=== PATIENT | female | born 1960 | race Caucasian/White ===

== ENCOUNTER 2017-06-22 15:28 | Emergency (ER) | payer BC ==
[~2017-06-22 15:28] MED LIST: ALPR0.5T3 PO; APIX2.5T PO; HYDR-3288 PO; LEVO150T7 PO; LIOT25TA3 PO; VITA10007 PO; VITA200012 PO
[2017-06-22 15:33] VITALS: BP 143/98; PULSE 81; RESP 18; TEMP 98; O2SAT 99
--- NOTE | 2017-06-22 16:46 | RADRPT ---
EXAM DATE/TIME: 06/22/2017 16:11 [facility] COMPARISON: No previous studies available for comparison. INDICATIONS : Left knee pain amd swelling. No prior trauma. MEDICAL HISTORY : Arthritis. SURGICAL HISTORY : None. ENCOUNTER: Initial ACUITY: 1 day PAIN SCORE: 10/10 LOCATION: Left knee. FINDINGS: Joint space narrowing and osteophyte formation most prominently involving the lateral and patellofemo ral compartments. Osseous structures are intact. There is likely a very small suprapatellar effusion. CONCLUSION: 1. Degenerative osteoarthritis most prominently involving the lateral and patellofemoral compartments . 2. Probable very small suprapatellar effusion. Miguel Angel Bush MD on June 22, 2017 at 16:43 Board Certified Radiologist. This report was verified electronically.
[2017-06-22] MEDS ORDERED: ACETAMINOPHEN/HYDROcodone 325 MG/5 MG TAB PO ONE (19:00)
[2017-06-22] MEDS ORDERED: KETOROLAC TROMETHAMINE 60 MG/2 ML (IM) VIAL IM ONE (19:00)
[2017-06-22] MEDS ORDERED: NORC5TAB PO (19:02)
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
[2017-07-02] MEDS ORDERED: ASCO500T PO (09:09)
[2017-07-02] MEDS ORDERED: CHOL1TAB42 PO (09:09)
[2017-07-02] MEDS ORDERED: LEVO137T2 PO (09:09)
== END 2017-06-22 19:21 | disposition home or self-care (01) ==
LOC: NEPD 15:28
DX: M25.562 Pain in left knee (principal); M19.90 Unspecified osteoarthritis, unspecified site; Z96.641 Presence of right artificial hip joint
CPT/HCPCS: 73564; 96372; 99284; J1885

== ENCOUNTER → 2017-07-02 | Outpatient (CLI) | payer BC ==
[~2017-07-02] MED LIST changes: +ASCO500T PO; +ASPI81CH6 CHEW; +CHOL1TAB42 PO; +CPMMACHINE; +ENOX40P SQ; +LEVO137T2 PO; +NORC5TAB PO
--- NOTE | 2017-07-02 18:19 | EKG ---
Date Performed: 07/02/2017 Time Performed: 08:50:52 PTAGE: 57 years EKG: Sinus rhythm NORMAL ECG Since PREVIOUS TRACING , no significant change noted PREVIOUS TRACIN08/03/2013 08.34 DOCTOR: Jeovanny Forrest Interpretating Date/Time 07/02/2017 18:18:07
== END ==
LOC: CPRE 08:39
PROVIDERS: ATTEND Orthopaedic Surgery Sports Medicine
DX: Z01.810 Encounter for preprocedural cardiovascular examination (principal)
CPT/HCPCS: 93005

== ENCOUNTER 2017-07-19 05:17 | Inpatient (IN) | payer BC ==
[~2017-07-19] VITALS: Ht 167.6 cm; Wt 104.5 kg
[~2017-07-19 05:17] MED LIST changes: -APIX2.5T PO; -ASPI81CH6 CHEW; -CPMMACHINE; -ENOX40P SQ; -LEVO150T7 PO; -NORC5TAB PO; -VITA10007 PO; -VITA200012 PO
[2017-07-19] MEDS ORDERED: POVIDONE IODINE 5% (ANTISEPSIS KIT) 4 APPLICATIONS EACH NARE PRN (06:30)
[2017-07-19] MEDS ORDERED: METOPROLOL TARTRATE 25 MG TAB PO PRN (06:30)
[2017-07-19] MEDS ORDERED: POVIDONE IODINE 7.5% SCRUB 118 ML BOTTLE TOPICAL SCH (06:30)
[2017-07-19] MEDS ORDERED: SODIUM CHLORID 0.9% 500 ML IV PRN (06:30)
[2017-07-19] MEDS ORDERED: CHLORHEXIDINE GLUCONATE 2 % 1 PACK (2 CLOTHS) TOPICAL PRN (06:30)
[2017-07-19] MEDS ORDERED: LACTATED RINGER'S 1000 ML IV PRN (06:30)
[2017-07-19] MEDS ORDERED: CHLORHEXIDINE GLUCONATE 4% SOLN 120 ML BTL TOPICAL SCH (06:30)
[2017-07-19] MEDS ORDERED: GENTAMICIN SULFATE 80 MG/2 ML VIAL ONE (06:58)
[2017-07-19] MEDS ORDERED: HYDR-3288 PO (06:59)
[2017-07-19] MEDS ORDERED: Post-op Orders (for Pharmacy) MISC XX ONE (07:00)
[2017-07-19] MEDS ORDERED: ALPRAZolam 0.5 MG TAB PO PRN (07:00)
[2017-07-19] MEDS ORDERED: diphenhydrAMINE HCL 50 MG/ML VIAL IV PUSH PRN (07:00)
[2017-07-19] MEDS ORDERED: MORPHINE SULFATE 4 MG/ML INJ IV PUSH PRN (07:00)
[2017-07-19] MEDS ORDERED: ASPI81CH6 CHEW (07:00)
[2017-07-19] MEDS ORDERED: ENOX40P SQ (07:00)
[2017-07-19] MEDS ORDERED: ACETAMINOPHEN/HYDROcodone 325 MG/7.5 MG TAB PO PRN (07:00)
[2017-07-19] MEDS ORDERED: BISACODYL 10 MG SUPP RECTAL PRN (07:00)
[2017-07-19] MEDS ORDERED: BUPIVACAINE LIPOSOME PF 1.3% 20 ML VIAL ONE (07:39)
[2017-07-19] MEDS ORDERED: ACETAMINOPHEN 1000 MG/100 ML 0 ML IV ONE (07:40)
[2017-07-19] MEDS ORDERED: APREPITANT 40 MG CAP ONE (07:57)
[2017-07-19] MEDS ORDERED: VANCOMYCIN 1000 MG/NS 250 ML (for <70 kg) IV SCH ×2 (08:30)
[2017-07-19] MEDS ORDERED: ceFAZolin 2 GM PREMIX 50 ML IV SCH (08:30)
[2017-07-19] MEDS ORDERED: ROPIVACAINE PERI-ARTICULAR INJECTION. P-ARTICULR SCH ×5 (08:30)
[2017-07-19] MEDS ORDERED: SODIUM CHLORIDE 0.9% IV SCH (08:30)
[2017-07-19] MEDS ORDERED: DEXAMETHASONE SOD PHOS 20 MG/5 ML VIAL IV PUSH SCH (08:30)
[2017-07-19] MEDS ORDERED: TRANEXAMIC ACID IV SCH (08:30)
[2017-07-19] MEDS ORDERED: NON-FORMULARY DRUG (Levothyroxine 137 MCG) PO SCH (09:00)
[2017-07-19] MEDS ORDERED: MIDAZOLAM HCL 5 MG/5 ML VIAL ONE (09:50)
--- NOTE | 2017-07-19 11:07 | MP ---
cc: JOAN FERNANDEZ DATE OF SURGERY 07/19/2017 PREOPERATIVE DIAGNOSIS Left knee osteoarthritis. POSTOPERATIVE DIAGNOSES Left knee osteoarthritis. PROCEDURE Left total knee arthroplasty. SURGEON Dr. Joan Fernandez COUNT ROOM CLERK Segundo Kendall PA-C ANESTHESIA Spinal with a femoral nerve block. ESTIMATED BLOOD LOSS Less than 50 cc COMPLICATIONS None. IMPLANTS USED DePuy Attune size 6 posterior stabilizing femoral component, size 5 rotating platform tibial baseplate, size 7-mm polyethylene tibial insert, size 35 patella. JUSTIFICATION The patient is a 57-year-old female with a history of severe end-stage osteoarthritis involving the left knee. She has severe disabling pain with standing, walking ambulation, weightbearing activities and severe pain at rest. She has failed greater than 3 months of nonoperative conservative treatment to include medication therapy injections, ambulatory assistive aids, home exercise program, active modification and weight loss. X-rays of the left knee reveal severe end-stage osteoarthritis, [id number] joint space narrowing, subchondral sclerosis, subchondral cysts, osteophyte formation and subluxation. The patient was counseled as to risks, benefits and alternatives to a total knee arthroplasty. The risks which were discussed include but not limited to anesthesia, bleeding, infection, damage to nerves, blood vessels, pain, stiffness, failure of the components, blood clots, pulmonary embolism and even . The patient favored the benefits over the risks, her pain was severe and she did wish to proceed with surgery. PROCEDURE IN DETAIL Written consent was obtained. The patient was identified by name, taken to the operating room, placed supine. Spinal anesthesia was administered as well as an adductor canal femoral nerve block. The patient was administered 2 grams of IV Ancef and 1 gram of IV vancomycin. A well-padded tourniquet was placed on the left thigh, left lower extremity prepped and draped using isopropyl alcohol, Hibiclens solution and Chloraprep solution. After a time-out was formed an Esmarch bandage was used to exsanguinate the left lower extremity, the tourniquet inflated to 300 mmHg. A longitudinal incision was made over the anterior aspect of the left knee, the medial parapatellar arthrotomy was performed. The patella was everted. The patellar resection guide was used to resect 9 mm of patella. The size 35-mm guide was placed, three drill holes were placed and the 35-mm trial fit well. Attention was turned to the femur where an intramedullary guide neli was placed and the distal femoral guide set to remove 10 mm of distal femur, 5 degrees off the anatomic valgus axis alignment. An oscillating saw was used to perform a distal femoral cut. Attention was turned to the tibia where an extramedullary tibial guide was set to remove 6 mm off the lowest portion of the medial tibial plateau. The tibial guide was set in place and tibia cut was performed. A 5-mm spacer block showed full extension. Attention was turned back to the femur where AP sizing block measured a size 6. The anterior reference 3-degree external rotation guide was used to pin a size [address] The anterior, posterior and chamfer cuts were performed. A size 6 PCL box was pinned in place and PCL boxed off with an oscillating saw. The medial and lateral meniscus remnants were removed as well as bone and soft tissue debris at the posterior portion of the knee. A size 5 tibia baseplate was pinned in place and tibia was drilled and punched. Trial components were evaluated and final components cemented in place. With the current components the leg could achieve full extension to 0 degrees and flexion to 140 with no evidence of tibial lift-off. Varus-valgus balance appeared appropriate and symmetric and the patella was noted to track centrally. The knee was again thoroughly irrigated with sterile saline pulse lavage antibiotic impregnated solution. The arthrotomy incision was closed with #1 Vicryl suture, the subcutaneous layer with 2-0 Vicryl suture. The skin was closed with Dermabond. Sterile dressing applied. The patient tolerated the procedure well; no intraoperative complications noted. Segundo Kendall, physician fundraising assistant certified, was present for the entire procedure to include patient positioning and the procedure itself. The medical necessity of a physician fundraising assistant was indicated in this case due to the complexity of the procedure. He assisted with manipulation of the leg and also with traction of muscle, tendon, bone and neurovascular structures. He assisted with preparation of bone and also implantation of the prosthetic replacements. Joan Fernandez MD JWM/SSB /10:37 AM /10:48 AM
[2017-07-19] MEDS ORDERED: DO NOT ADM ANY ANTICOAGULANT DRUGS PRN (11:09)
[2017-07-19] MEDS ORDERED: TRANEXAMIC PERI-ARTICULAR 3,000 MG/NS 100 ML P-ARTICULR SCH ×2 (11:30)
[2017-07-19] MEDS: SODIUM CHLOR 0.9% 1000 ML INJ 1,000 ML IV SCH ×2 (11:40→23:39)
[2017-07-19] MEDS: LEVOTHYROXINE SODIUM 25 MCG TAB PO SCH (12:00)
[2017-07-19] MEDS: LEVOTHYROXINE SODIUM 112 MCG TAB PO SCH (12:00)
[2017-07-19] MEDS: ASCORBIC ACID 500 MG TAB PO SCH (12:00)
[2017-07-19] MEDS ORDERED: *morphine SULFATE 8 MG/ML PERIprocedure ONLY ONE (12:11)
--- NOTE | 2017-07-19 12:26 | RADRPT ---
EXAM DATE/TIME: 07/19/2017 11:54 [facility] COMPARISON: No previous studies available for comparison. INDICATIONS : Total left knee MEDICAL HISTORY : Osteoarthritis. Hashimodos disease SURGICAL HISTORY : Bilateral total hip replacements ENCOUNTER: Initial ACUITY: 1 day PAIN SCORE: 9/10 LOCATION: Left knee FINDINGS: Three-view examination demonstrates intact total knee arthroplasty with near-anatomic alignment of th e osseous structures. Scattered deep soft tissue gas is seen about the knee joint and in the suprapat ellar region. No foreign body seen. CONCLUSION: Expected surgical changes status post total knee arthroplasty. Charlie Carrillo MD on July 19, 2017 at 12:24 Board Certified Radiologist. This report was verified electronically.
[2017-07-19 12:45] VITALS: BP 118/61; PULSE 80; RESP 18; TEMP 97.3; O2SAT 100
--- NOTE | 2017-07-19 13:33 | PD.CONS ---
[facility] By Reason for Consult medical management Primary Care Physician Ludy Laurent D.O. Diagnoses: History of Present Illness patient is a 57 y/o female with history of osteoarthritis and hypothyroidism who underwent left total knee arthroplasty today. at the time of my evaluation the pain was fairly controlled. she had some nausea but with no emesis. she denies any chest pain, sob, dizziness. Review of Systems Constitutional: DENIES: Fever, Weight loss, Chills, Night Sweats Eyes: DENIES: Blurred vision, Diplopia, Vision loss, Double Vision Ears, nose, mouth, throat: DENIES: Tinnitus, Vertigo, Throat pain, Epistaxis Respiratory: DENIES: Apneas, Cough, Snoring, Wheezing, Hemoptysis, Sputum production, Shortness of breath Cardiovascular: DENIES: Chest pain, Palpitations, Syncope, Dyspnea on Exertion , PND, Lower Extremity Edema, Orthopnea, Claudication Gastrointestinal: COMPLAINS OF: Nausea, DENIES: Abdominal pain, Black stools, Bloody stools, Constipation, Diarrhea, Vomiting, Difficulty Swallowing, Anorexia Genitourinary: DENIES: Urinary frequency, Urgency, Hematuria, Dysuria Musculoskeletal: COMPLAINS OF: Joint pain (left knee), DENIES: Muscle aches, Stiffness, Joint Swelling Integumentary: DENIES: Rash Neurologic: DENIES: Abnormal gait, Headache, Localized weakness, Paresthesias, Seizures, Speech Problems, Tremor, Poor Balance Psychiatric: DENIES: Anxiety, Confusion, Mood changes, Depression, Hallucinations, Agitation, Suicidal Ideation, Homicidal Ideation, Delusions Past Family Social History Allergies: Coded Allergies: codeine (Verified Allergy, Intermediate, RED BUMPS, 07/19/17) PT STATES SHE CAN TAKE MEDS WITH CODEINE IN SMALL DOSAGES Past Medical History osteoarthritis hypothyroidism Past Surgical History hip replacement Reported Medications levothyroxine Active Ordered Medications Current Medications Lactated Ringer's 1,000 ml @ 30 mls/hr Q24H PRN IV SEE LABEL COMMENTS Last administered on 07/19/17t 07:40; Start 07/19/17 at 06:30; Stop 07/22/17 at 06:29 Sodium Chloride 500 ml @ 30 mls/hr [id number] PRN IV SEE LABEL COMMENTS; Start at 06:30; Stop 07/22/17 at 06:29 Metoprolol Tartrate (Lopressor) 25 mg MARKETING ACCOUNT EXECUTIVE PRN PO SEE LABEL COMMENTS; Start 07/19/17 at 06:30; Stop 07/22/17 at 06:29 Povidone Iodine (Betadine 5% Antisepsis Kit) 1 applic MARKETING ACCOUNT EXECUTIVE PRN EACH NARE SEE LABEL COMMENTS Last administered on 07/19/17 07:43; Start 07/19/17 at 06:30 ; Stop 07/22/17 at 06:29 Chlorhexidine Gluconate (Chlorhexidine 2% Cloth) 3 pack MARKETING ACCOUNT EXECUTIVE PRN TOPICAL SEE LABEL COMMENTS Last administered on 07/19/17 07:00; Start 07/19/17 at 06:30 ; Stop 07/22/17 at 06:29 Povidone Iodine (Betadine 7.5% Scrub) 1 applic ONCE TOPICAL ; Start 07/19/17 at 06:30; Stop 07/22/17 at 06:29 Chlorhexidine Gluconate (Hibiclens 4% Top Soln) 1 applic ONCE TOPICAL ; Start 07/19/17 at 06:30; Stop 07/22/17 at 06:29 Cefazolin Sodium/ Dextrose 50 ml @ 100 mls/hr MARKETING ACCOUNT EXECUTIVE IV Last administered on 07/19/17 08:39; Start 07/19/17 at 08:30; Stop 07/19/17 at 21:00 Vancomycin HCl 1000 mg/Sodium Chloride 250 ml @ 250 mls/hr MARKETING ACCOUNT EXECUTIVE IV Last administered on 07/19/17 08:39; Start 07/19/17 at 08:30; Stop 07/19/17 at 21:00 Tranexamic Acid 1567.5 mg/Sodium Chloride 115.675 ml @ 200 mls/ hr ONCE IV Last administered on 07/19/17 09:46; Start 07/19/17 at 08:30; Stop 07/19/17 at 21:00 Ropivacaine 24.63 ml/Ketorolac Tromethamine 30 mg/Epinephrine HCl 0.5 mg/ Clonidine 80 mcg/ Sodium Chloride 100 ml @ 200 mls/hr ONCE P-ARTICULR Last administered on 07/19/17 09:51; Start 07/19/17 at 08:30; Stop 07/19/17 at 21:00 Tranexamic Acid 3000 mg/Sodium Chloride 130 ml @ 260 mls/hr ONCE P-ARTICULR Last administered on 07/19/17 09:51; Start 07/19/17 at 11:30; Stop 07/19/17 at 21:00 Dexamethasone Sodium Phosphate (Decadron Inj) 10 mg ONCE IV PUSH Last administered on 07/19/17 07:45; Start 07/19/17 at 08:30; Stop 07/19/17 at 21:00 Alprazolam (Xanax) 0.5 mg Q8H PRN PO ANXIETY; Start 07/19/17 at 07:00 Ascorbic Acid (Vitamin C) 1,000 mg DAILY PO ; Start 07/19/17 at 12:00 Non-Formulary Medication 137 mcg DAILY PO ; Start 07/19/17 at 09:00; Status UNV Sodium Chloride 1,000 ml @ 100 mls/hr Q10H IV Last administered on 07/19/17 11:40; Start 07/19/17 at 10:15 Cefazolin Sodium/ Dextrose 50 ml @ 100 mls/hr Q6H IV ; Start 07/19/17 at 15:00 ; Stop 07/20/17 at 03:29 Miscellaneous Information (Post-op Orders (for Pharmacy)) STAT ONCE XX ; Start 07/19/17 at 07:00; Stop 07/19/17 at 10:11; Status DC Enoxaparin Sodium (Lovenox Inj) 40 mg Q24H SQ ; Start 07/20/17 at 10:00; Stop 07/29/17 at 10:01 Morphine Sulfate (Morphine Inj) 3 mg Q3H PRN IV PUSH Pain >7 when off HAND BANDER; Start 07/19/17 at 07:00; Status UNV Acetaminophen/ Hydrocodone Bitart ([place] 7.5-325 Mg) 1 tab Q4H PRN PO PAIN LESS THAN 5 ON SCALE; Start 07/19/17 at 07:00; Status UNV Acetaminophen/ Hydrocodone Bitart ([place] 7.5-325 Mg) 2 tab Q4H PRN PO PAIN SCALE 5 TO 10; Start 07/19/17 at 07:00; Status UNV Multivitamins/ Minerals Therapeutic (Theragran M Tab) 1 tab BID PO ; Start 07/20 at 21:00; Stop 09/18/17 at 20:59 Ondansetron HCl (Zofran Inj) 4 mg Q6H PRN IVP NAUSEA OR VOMITING; Start at 07:00 Docusate Sodium (Colace) 100 mg BID PO ; Start 07/20/17 at 21:00 Zolpidem Tartrate (Ambien) 5 mg HS PRN PO SLEEP; Start 07/19/17 at 21:00 Bisacodyl (Dulcolax Supp) 10 mg DAILY PRN RECTAL CONSTIPATION; Start 07/19/17 at 07:00 Diphenhydramine HCl (Benadryl Inj) 25 mg Q6H PRN IV PUSH ITCHING; Start at 07:00 Gentamicin Sulfate (Gentamicin Inj) 240 mg STK-MED ONCE .ROUTE Last administered on 07/19/17t 09:51; Start 07/19/17 at 06:58; Stop 07/19/17 at 06:59 ; Status DC Bupivacaine Liposome (Exparel Pf 1.3% Inj) 20 ml STK-MED ONCE .ROUTE ; Start at 07:39; Stop 07/19/17 at 07:40; Status DC Acetaminophen 0 ml @ As Directed STK-MED ONCE IV ; Start 07/19/17 at 07:40; Stop 07/19/17 at 07:41; Status DC Aprepitant (Emend) 40 mg STK-MED ONCE .ROUTE ; Start 07/19/17 at 07:57; Stop at 07:58; Status DC Midazolam HCl (Versed Inj) 5 mg STK-MED ONCE .ROUTE ; Start 07/19/17 at 09:50; Stop 07/19/17 at 09:51; Status DC Levothyroxine Sodium (Synthroid) 112 mcg DAILY@0600 PO ; Start 07/19/17 at 12:00 Levothyroxine Sodium (Synthroid) 25 mcg DAILY@0600 PO ; Start 07/19/17 at 12:00 Morphine Sulfate (*morphine INJ PERIprocedure ONLY) 8 mg STK-MED ONCE .ROUTE ; Start 07/19/17 at 12:11; Stop 07/19/17 at 12:12; Status DC Family History not relevant to this consult. Social History quit smoking years ago- drinks socially. Physical Exam Vital Signs Vital Signs Date Time Temp Pulse Resp B/P (MAP) Pulse Ox O2 Delivery O2 Flow Rate FiO2 07/19/17 12:49 Room Air 07/19/17 12:45 97.3 80 18 118/61 (80) 100 07/19/17 12:00 69 16 134/58 (83) 100 Room Air 07/19/17 11:45 69 14 123/61 (81) 99 Room Air 07/19/17 11:30 70 14 124/59 (80) 100 Room Air 07/19/17 11:15 74 16 123/58 (79) 100 Room Air 07/19/17 11:12 98.7 76 15 131/60 (83) 96 Room Air 07/19/17 07:33 98.6 70 18 146/82 (103) 98 Physical Exam GENERAL: This is a well-nourished, well-developed patient, in no apparent distress. SKIN: No rashes, ecchymoses or lesions. Cool and dry. HEAD: Atraumatic. Normocephalic. No temporal or scalp tenderness. EYES: Pupils equal round and reactive. Extraocular motions intact. No scleral icterus. No injection or drainage. ENT: Nose without bleeding, purulent drainage or septal hematoma. Throat without erythema, tonsillar hypertrophy or exudate. Uvula midline. Airway patent. NECK: Trachea midline. No JVD or lymphadenopathy. Supple, nontender, no meningeal signs. CARDIOVASCULAR: Regular rate and rhythm without murmurs, gallops, or rubs. RESPIRATORY: Clear to auscultation. Breath sounds equal bilaterally. No wheezes , rales, or rhonchi. GASTROINTESTINAL: Abdomen soft, non-tender, nondistended. No hepato-splenomegaly , or palpable masses. No guarding. MUSCULOSKELETAL: left knee covered with clean dressing. NEUROLOGICAL: Awake and alert. Cranial nerves II through XII intact. Motor and sensory grossly within normal limits. Five out of 5 muscle strength in all muscle groups. Normal speech. Imaging Last Impressions Knee X-Ray 07/19/17 0657 Signed Impressions: Service Date/Time: Wednesday, July 19, 2017 11:54 - CONCLUSION: Expected surgical changes status post total knee arthroplasty. Charlie Carrillo MD Assessment and Plan Assessment and Plan A/P - osteoarthritis- s/p left total knee arthroplasty continue pain control and rehab efforts- management per ortho. -hypothyroidism; resumed levothyroxine -DVT prophylaxis; on Lovenox- per ortho thank you for the consult. Discussed Condition With the patient. Karyn Montana MD Jul 19, 2017 13:33
[2017-07-19] MEDS: ONDANSETRON HCL 4 MG/2 ML VIAL IVP PRN ×2 (14:21→21:01)
[2017-07-19] MEDS: ceFAZolin 2 GM PREMIX 50 ML IV SCH ×2 (14:21→20:09)
[2017-07-19] MEDS: ACETAMINOPHEN/HYDROcodone 325 MG/7.5 MG TAB PO PRN ×2 (18:44→23:38)
[2017-07-19 20:00] VITALS: BP 105/58; PULSE 60; RESP 17; TEMP 96.9; O2SAT 98
[2017-07-19] MEDS ORDERED: ZOLPIDEM TARTRATE 5 MG TAB PO PRN (21:00)
[2017-07-20] VITALS: BP 110/59; PULSE 67; RESP 17; TEMP 96.6; O2SAT 99
[2017-07-20] MEDS: ceFAZolin 2 GM PREMIX 50 ML IV SCH (03:23)
[2017-07-20 03:25] VITALS: BP 106/56; PULSE 59; RESP 18; TEMP 96.5; O2SAT 98
[2017-07-20 04:43] LABS: HEMATOCRIT 35.6 % (35.0-46.0); MEAN CELL VOLUME 88.8 FL (80.0-100.0); MEAN CORPUSCULAR HEMOGLOBIN 29.7 PG (27.0-34.0); MEAN CORPUSCULAR HGB CONC 33.5 % (32.0-36.0); PLATELET COUNT 230 TH/MM3 (150-450); RED BLOOD COUNT 4.01 MIL/MM3 (4.00-5.30); RED CELL DISTRIBUTION WIDTH 13.1 % (11.6-17.2); REVIEW FLAG FINAL; WHITE BLOOD COUNT 13.9 TH/MM3 (4.0-11.0)
[2017-07-20 05:10] LABS: BICARBONATE 22.6 MEQ/L (21.0-32.0); POTASSIUM 4.2 MEQ/L (3.5-5.1)
[2017-07-20] MEDS: ONDANSETRON HCL 4 MG/2 ML VIAL IVP PRN (05:28)
[2017-07-20] MEDS: LEVOTHYROXINE SODIUM 25 MCG TAB PO SCH (05:30)
[2017-07-20] MEDS: LEVOTHYROXINE SODIUM 112 MCG TAB PO SCH (05:30)
[2017-07-20] MEDS: SODIUM CHLOR 0.9% 1000 ML INJ 1,000 ML IV SCH ×2 (06:15→16:15)
[2017-07-20 07:26] VITALS: BP 131/62; PULSE 56; RESP 17; TEMP 96.8; O2SAT 99
[2017-07-20] MEDS: ASCORBIC ACID 500 MG TAB PO SCH (08:10)
[2017-07-20] MEDS: ACETAMINOPHEN/HYDROcodone 325 MG/7.5 MG TAB PO PRN ×4 (08:10→22:35)
--- NOTE | 2017-07-20 08:48 | PD.ORT.PN ---
Subjective Post Op Day #: 1 Subjective Remarks pain tolerable. Objective Vitals Vital Signs Date Time Temp Pulse Resp B/P (MAP) Pulse Ox O2 Delivery O2 Flow Rate FiO2 07/20/17 07:26 96.8 56 17 131/62 (85) 99 07/20/17 03:25 96.5 59 18 106/56 (73) 98 07/20/17 00:00 96.6 67 17 110/59 (76) 99 07/19/17 20:10 Room Air 07/19/17 20:00 96.9 60 17 105/58 (74) 98 07/19/17 12:49 Room Air 07/19/17 12:45 97.3 80 18 118/61 (80) 100 07/19/17 12:15 98.5 71 16 128/61 (83) 100 Room Air 07/19/17 12:00 69 16 134/58 (83) 100 Room Air 07/19/17 11:45 69 14 123/61 (81) 99 Room Air 07/19/17 11:30 70 14 124/59 (80) 100 Room Air 07/19/17 11:15 74 16 123/58 (79) 100 Room Air 07/19/17 11:12 98.7 76 15 131/60 (83) 96 Room Air I/O 07/19/17 07/19/17 07/19/17 07/20/17 07/20/17 07/20/17 07:00 15:00 23:00 07:00 15:00 23:00 Intake Total 1200 ml 1042 ml 410 ml Output Total 400 ml 950 ml 550 ml Balance 800 ml 92 ml -140 ml Intake Oral 480 ml 360 ml IV Total 100 ml 562 ml 50 ml Other 1100 ml Output Urine Total 350 ml 950 ml 550 ml Estimated Blood Loss 50 ml # Bowel Movements 0 Result Diagram: 07/20/17 0417 07/20/17 041 Objective Remarks sitting in chair, nad dressing c/d/i neg homans nvi Assessment & Plan Ortho Post Op Day #: 1 Problem List: Assessment and Plan s/p L TKA wbat daily dressing changes lovenox d/c planning to snf rx in chart f/up dr. garvin 2 weeks Bo Kendall Jul 20, 2017 08:48
[2017-07-20] MEDS ORDERED: CPMMACHINE (08:50)
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
[2017-07-20] MEDS: ENOXAPARIN SODIUM 40 MG/0.4 ML SYRINGE SQ SCH (10:03)
[2017-07-20 11:42] VITALS: BP 117/69; PULSE 58; RESP 17; TEMP 95.5; O2SAT 100
--- NOTE | 2017-07-20 12:34 | HHI.PR ---
Subjective Remarks in no acute distress. pain is fairly controlled. no new complaints. Objective Vitals Vital Signs Date Time Temp Pulse Resp B/P (MAP) Pulse Ox O2 Delivery O2 Flow Rate FiO2 07/20/17 11:42 95.5 58 17 117/69 (85) 100 07/20/17 07:26 96.8 56 17 131/62 (85) 99 07/20/17 03:25 96.5 59 18 106/56 (73) 98 07/20/17 00:00 96.6 67 17 110/59 (76) 99 07/19/17 20:10 Room Air 07/19/17 20:00 96.9 60 17 105/58 (74) 98 07/19/17 12:49 Room Air 07/19/17 12:45 97.3 80 18 118/61 (80) 100 I/O 07/19/17 07/19/17 07/19/17 07/20/17 07/20/17 07/20/17 07:00 15:00 23:00 07:00 15:00 23:00 Intake Total 1200 ml 1042 ml 410 ml Output Total 400 ml 950 ml 550 ml Balance 800 ml 92 ml -140 ml Intake Oral 480 ml 360 ml IV Total 100 ml 562 ml 50 ml Other 1100 ml Output Urine Total 350 ml 950 ml 550 ml Estimated Blood Loss 50 ml # Bowel Movements 0 Result Diagram: 07/20/17 0417 07/20/17 0417 Imaging Last Impressions Knee X-Ray 07/19/17 0657 Signed Impressions: Service Date/Time: Wednesday, July 19, 2017 11:54 - CONCLUSION: Expected surgical changes status post total knee arthroplasty. Charlie Carrillo MD Objective Remarks GENERAL: This is a well-nourished, well-developed patient, in no apparent distress. CARDIOVASCULAR: Regular rate and regular rhythm without murmurs, gallops, or rubs. RESPIRATORY: Clear to auscultation. Breath sounds equal bilaterally. No wheezes , rales, or rhonchi. GASTROINTESTINAL: Abdomen soft, non-tender, nondistended. Normal, active bowel sounds MUSCULOSKELETAL: left leg covered with clean dressing. NEURO: Alert & Oriented x4 to person, place, time, situation. Moves all ext x4 Medications and IVs Current Medications Lactated Ringer's 1,000 ml @ 30 mls/hr Q24H PRN IV SEE LABEL COMMENTS Last administered on 07/19/17 07:40; Start 07/19/17 at 06:30; Stop 07/22/17 at 06:29 Sodium Chloride 500 ml @ 30 mls/hr [id number] PRN IV SEE LABEL COMMENTS; Start at 06:30; Stop 07/22/17 at 06:29 Metoprolol Tartrate (Lopressor) 25 mg DIRECTOR CALL CENTER SALES PRN PO SEE LABEL COMMENTS; Start 07/19/17 at 06:30; Stop 07/22/17 at 06:29 Povidone Iodine (Betadine 5% Antisepsis Kit) 1 applic DIRECTOR CALL CENTER SALES PRN EACH NARE SEE LABEL COMMENTS Last administered on 07/19/17 07:43; Start 07/19/17 at 06:30 ; Stop 07/22/17 at 06:29 Chlorhexidine Gluconate (Chlorhexidine 2% Cloth) 3 pack DIRECTOR CALL CENTER SALES PRN TOPICAL SEE LABEL COMMENTS Last administered on 07/19/17 07:00; Start 07/19/17 at 06:30 ; Stop 07/22/17 at 06:29 Povidone Iodine (Betadine 7.5% Scrub) 1 applic ONCE TOPICAL ; Start 07/19/17 at 06:30; Stop 07/22/17 at 06:29 Chlorhexidine Gluconate (Hibiclens 4% Top Soln) 1 applic ONCE TOPICAL ; Start 07/19/17 at 06:30; Stop 07/22/17 at 06:29 Cefazolin Sodium/ Dextrose 50 ml @ 100 mls/hr DIRECTOR [employer] CENTER SALES IV Last administered on 07/19/17 08:39; Start 07/19/17 at 08:30; Stop 07/19/17 at 21:00; Status DC Vancomycin HCl 1000 mg/Sodium Chloride 250 ml @ 250 mls/hr DIRECTOR [employer] C[employer] SALES IV Last administered on 07/19/17 08:39; Start 07/19/17 at 08:30; Stop 07/19/17 at 21:00 ; Status DC Tranexamic Acid 1567.5 mg/Sodium Chloride 115.675 ml @ 200 mls/ hr ONCE IV Last administered on 07/19/17 09:46; Start 07/19/17 at 08:30; Stop 07/19/17 at 21:00; Status DC Ropivacaine 24.63 ml/Ketorolac Tromethamine 30 mg/Epinephrine HCl 0.5 mg/ Clonidine 80 mcg/ Sodium Chloride 100 ml @ 200 mls/hr ONCE P-ARTICULR Last administered on 07/19/17 09:51; Start 07/19/17 at 08:30; Stop 07/19/17 at 21:00 ; Status DC Tranexamic Acid 3000 mg/Sodium Chloride 130 ml @ 260 mls/hr ONCE P-ARTICULR Last administered on 07/19/17 09:51; Start 07/19/17 at 11:30; Stop 07/19/17 at 21:00; Status DC Dexamethasone Sodium Phosphate (Decadron Inj) 10 mg ONCE IV PUSH Last administered on 07/19/17 07:45; Start 07/19/17 at 08:30; Stop 07/19/17 at 21:00 ; Status DC Alprazolam (Xanax) 0.5 mg Q8H PRN PO ANXIETY; Start 07/19/17 at 07:00 Ascorbic Acid (Vitamin C) 1,000 mg DAILY PO Last administered on 07/20/17 08: 10; Start 07/19/17 at 12:00 Non-Formulary Medication 137 mcg DAILY PO ; Start 07/19/17 at 09:00; Status UNV Sodium Chloride 1,000 ml @ 100 mls/hr Q10H IV Last administered on 07/19/17 23:39; Start 07/19/17 at 10:15 Cefazolin Sodium/ Dextrose 50 ml @ 100 mls/hr Q6H IV Last administered on 07/20 03:23; Start 07/19/17 at 15:00; Stop 07/20/17 at 03:29; Status DC Miscellaneous Information (Post-op Orders (for Pharmacy)) STAT ONCE XX ; Start 07/19/17 at 07:00; Stop 07/19/17 at 10:11; Status DC Enoxaparin Sodium (Lovenox Inj) 40 mg Q24H SQ Last administered on 07/20/17 10 :03; Start 07/20/17 at 10:00; Stop 07/29/17 at 10:01 Morphine Sulfate (Morphine Inj) 3 mg Q3H PRN IV PUSH Pain >7 when 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; Start 07/19/17 at 07:00 Acetaminophen/ Hydrocodone Bitart ([place] 7.5-325 Mg) 1 tab Q4H PRN PO PAIN LESS THAN 5 ON SCALE; Start 07/19/17 at 07:00 Acetaminophen/ Hydrocodone Bitart ([place] 7.5-325 Mg) 2 tab Q4H PRN PO PAIN SCALE 5 TO 10 Last administered on 07/20/17 08:10; Start 07/19/17 at 07:00 Multivitamins/ Minerals Therapeutic (Theragran M Tab) 1 tab BID PO ; Start 07/20 at 21:00; Stop 09/18/17 at 20:59 Ondansetron HCl (Zofran Inj) 4 mg Q6H PRN IVP NAUSEA OR VOMITING Last administered on 07/20/17 05:28; Start 07/19/17 at 07:00 Docusate Sodium (Colace) 100 mg BID PO ; Start 07/20/17 at 21:00 Zolpidem Tartrate (Ambien) 5 mg HS PRN PO SLEEP; Start 07/19/17 at 21:00 Bisacodyl (Dulcolax Supp) 10 mg DAILY PRN RECTAL CONSTIPATION Last administered on 07/20/17 10:02; Start 07/19/17 at 07:00 Diphenhydramine HCl (Benadryl Inj) 25 mg Q6H PRN IV PUSH ITCHING; Start at 07:00 Gentamicin Sulfate (Gentamicin Inj) 240 mg STK-MED ONCE .ROUTE Last administered on 07/19/17 09:51; Start 07/19/17 at 06:58; Stop 07/19/17 at 06:59 ; Status DC Bupivacaine Liposome (Exparel Pf 1.3% Inj) 20 ml STK-MED ONCE .ROUTE ; Start at 07:39; Stop 07/19/17 at 07:40; Status DC Acetaminophen 0 ml @ As Directed STK-MED ONCE IV ; Start 07/19/17 at 07:40; Stop 07/19/17 at 07:41; Status DC Aprepitant (Emend) 40 mg STK-MED ONCE .ROUTE ; Start 07/19/17 at 07:57; Stop at 07:58; Status DC Midazolam HCl (Versed Inj) 5 mg STK-MED ONCE .ROUTE ; Start 07/19/17 at 09:50; Stop 07/19/17 at 09:51; Status DC Levothyroxine Sodium (Synthroid) 112 mcg DAILY@0600 PO ; Start 07/19/17 at 12:00 Levothyroxine Sodium (Synthroid) 25 mcg DAILY@0600 PO ; Start 07/19/17 at 12:00 Morphine Sulfate (*morphine INJ PERIprocedure ONLY) 8 mg STK-MED ONCE .ROUTE ; Start 07/19/17 at 12:11; Stop 07/19/17 at 12:12; Status DC Miscellaneous Information ALL NURSING DEPARTME... UNSCH PRN .XX SEE LABEL COMMENTS; Start 07/19/17 at 11:09; Stop 07/20/17 at 11:08; Status DC A/P Assessment and Plan - osteoarthritis- s/p left total knee arthroplasty continue pain control and rehab efforts- management per ortho. -hypothyroidism; resumed levothyroxine -DVT prophylaxis; on Lovenox- per ortho Karyn Montana MD Jul 20, 2017 12:34
[2017-07-20 15:40] VITALS: BP 131/81; PULSE 64; RESP 17; TEMP 96.5; O2SAT 97
[2017-07-20 20:05] VITALS: BP 125/68; PULSE 60; RESP 16; TEMP 97; O2SAT 99
[2017-07-20] MEDS: DOCUSATE SODIUM 100 MG CAP PO SCH (20:44)
[2017-07-20] MEDS: MULTIVITAMINS/MINERALS THERAPEUTIC TAB PO SCH (20:44)
[2017-07-21] VITALS: BP 131/67; PULSE 69; RESP 16; TEMP 97.5; O2SAT 98
[2017-07-21] MEDS: SODIUM CHLOR 0.9% 1000 ML INJ 1,000 ML IV SCH ×2 (02:15→12:15)
[2017-07-21] MEDS: LEVOTHYROXINE SODIUM 112 MCG TAB PO SCH (06:00)
[2017-07-21] MEDS: LEVOTHYROXINE SODIUM 25 MCG TAB PO SCH (06:00)
[2017-07-21 07:07] LABS: HEMATOCRIT 34.5 % (35.0-46.0); MEAN CELL VOLUME 89.4 FL (80.0-100.0); MEAN CORPUSCULAR HEMOGLOBIN 29.7 PG (27.0-34.0); MEAN CORPUSCULAR HGB CONC 33.2 % (32.0-36.0); PLATELET COUNT 215 TH/MM3 (150-450); RED BLOOD COUNT 3.86 MIL/MM3 (4.00-5.30); RED CELL DISTRIBUTION WIDTH 13.1 % (11.6-17.2); REVIEW FLAG FINAL; WHITE BLOOD COUNT 6.6 TH/MM3 (4.0-11.0)
[2017-07-21 07:30] VITALS: BP 143/76; PULSE 66; RESP 19; TEMP 97.2; O2SAT 100
[2017-07-21 07:32] LABS: BICARBONATE 26.6 MEQ/L (21.0-32.0); POTASSIUM 4.1 MEQ/L (3.5-5.1)
--- NOTE | 2017-07-21 08:22 | PD.ORT.PN ---
Subjective Post Op Day #: 2 Subjective Remarks pain tolerable. Objective Vitals Vital Signs Date Time Temp Pulse Resp B/P (MAP) Pulse Ox O2 Delivery O2 Flow Rate FiO2 07/21/17 07:30 97.2 66 19 143/76 (98) 100 07/21/17 00:00 97.5 69 16 131/67 (88) 98 07/20/17 20:05 97.0 60 16 125/68 (87) 99 07/20/17 20:00 99 Room Air 07/20/17 15:40 96.5 64 17 131/81 (98) 97 07/20/17 11:42 95.5 58 17 117/69 (85) 100 I/O 07/20/17 07/20/17 07/20/17 07/21/17 07/21/17 07/21/17 07:00 15:00 23:00 07:00 15:00 23:00 Intake Total 410 ml 800 ml 360 ml 240 ml Output Total 550 ml Balance -140 ml 800 ml 360 ml 240 ml Intake Oral 360 ml 800 ml 360 ml 240 ml IV Total 50 ml Output Urine Total 550 ml # Voids 3 1 1 # Bowel Movements 1 0 0 Result Diagram: 07/21/17 0546 07/21/17 0546 Objective Remarks in bed, nad incision no erythema, no drainage neg homans nvi Assessment & Plan Ortho Post Op Day #: 2 Problem List: Assessment and Plan s/p L TKA wbat daily dressing changes lovenox d/c planning to snf - cleared when authorized by insurance rx in chart f/up dr. garvin 2 weeks Bo Kendall Jul 21, 2017 08:22
[2017-07-21] MEDS: MULTIVITAMINS/MINERALS THERAPEUTIC TAB PO SCH (08:24)
[2017-07-21] MEDS: ACETAMINOPHEN/HYDROcodone 325 MG/7.5 MG TAB PO PRN ×2 (08:24→13:49)
[2017-07-21] MEDS: DOCUSATE SODIUM 100 MG CAP PO SCH (08:24)
[2017-07-21] MEDS: ASCORBIC ACID 500 MG TAB PO SCH (08:24)
[2017-07-21] MEDS: ENOXAPARIN SODIUM 40 MG/0.4 ML SYRINGE SQ SCH (08:24)
[2017-07-21 11:32] VITALS: BP 122/73; PULSE 66; RESP 19; TEMP 97.3; O2SAT 99
--- NOTE | 2017-07-21 12:34 | HHI.PR ---
Subjective Remarks in no acute distress. pain is fairly controlled. had some nausea earlier. d/w the RN. Objective Vitals Vital Signs Date Time Temp Pulse Resp B/P (MAP) Pulse Ox O2 Delivery O2 Flow Rate FiO2 07/21/17 11:32 97.3 66 19 122/73 (89) 99 07/21/17 07:30 97.2 66 19 143/76 (98) 100 07/21/17 00:00 97.5 69 16 131/67 (88) 98 07/20/17 20:05 97.0 60 16 125/68 (87) 99 07/20/17 20:00 99 Room Air 07/20/17 15:40 96.5 64 17 131/81 (98) 97 I/O 07/20/17 07/20/17 07/20/17 07/21/17 07/21/17 07/21/17 07:00 15:00 23:00 07:00 15:00 23:00 Intake Total 410 ml 800 ml 360 ml 240 ml Output Total 550 ml Balance -140 ml 800 ml 360 ml 240 ml Intake Oral 360 ml 800 ml 360 ml 240 ml IV Total 50 ml Output Urine Total 550 ml # Voids 3 1 1 # Bowel Movements 1 0 0 Result Diagram: 07/21/17 0546 07/21/17 0546 Imaging Last Impressions Knee X-Ray 07/19/17 0657 Signed Impressions: Service Date/Time: Wednesday, July 19, 2017 11:54 - CONCLUSION: Expected surgical changes status post total knee arthroplasty. Charlie Carrillo MD Objective Remarks GENERAL: This is a well-nourished, well-developed patient, in no apparent distress. CARDIOVASCULAR: Regular rate and regular rhythm without murmurs, gallops, or rubs. RESPIRATORY: Clear to auscultation. Breath sounds equal bilaterally. No wheezes , rales, or rhonchi. GASTROINTESTINAL: Abdomen soft, non-tender, nondistended. Normal, active bowel sounds MUSCULOSKELETAL: left leg covered with clean dressing. NEURO: Alert & Oriented x4 to person, place, time, situation. Moves all ext x4 Medications and IVs Current Medications Lactated Ringer's 1,000 ml @ 30 mls/hr Q24H PRN IV SEE LABEL COMMENTS Last administered on 07/19/17t 07:40; Start 07/19/17 at 06:30; Stop 07/22/17 at 06:29 Sodium Chloride 500 ml @ 30 mls/hr [id number] PRN IV SEE LABEL COMMENTS; Start at 06:30; Stop 07/22/17 at 06:29 Metoprolol Tartrate (Lopressor) 25 mg PROGRAM RESEARCH SPECIALIST PRN PO SEE LABEL COMMENTS; Start 07/19/17 at 06:30; Stop 07/22/17 at 06:29 Povidone Iodine (Betadine 5% Antisepsis Kit) 1 applic PROGRAM RESEARCH SPECIALIST PRN EACH NARE SEE LABEL COMMENTS Last administered on 07/19/17 07:43; Start 07/19/17 at 06:30 ; Stop 07/22/17 at 06:29 Chlorhexidine Gluconate (Chlorhexidine 2% Cloth) 3 pack PROGRAM RESEARCH SPECIALIST PRN TOPICAL SEE LABEL COMMENTS Last administered on 07/19/17 07:00; Start 07/19/17 at 06:30 ; Stop 07/22/17 at 06:29 Povidone Iodine (Betadine 7.5% Scrub) 1 applic ONCE TOPICAL ; Start 07/19/17 at 06:30; Stop 07/22/17 at 06:29 Chlorhexidine Gluconate (Hibiclens 4% Top Soln) 1 applic ONCE TOPICAL ; Start 07/19/17 at 06:30; Stop 07/22/17 at 06:29 Cefazolin Sodium/ Dextrose 50 ml @ 100 mls/hr PROGRAM RESEARCH SPECIALIST IV Last administered on 07/19/17 08:39; Start 07/19/17 at 08:30; Stop 07/19/17 at 21:00; Status DC Vancomycin HCl 1000 mg/Sodium Chloride 250 ml @ 250 mls/hr PROGRAM RESEARCH SPECIALIST IV Last administered on 07/19/17 08:39; Start 07/19/17 at 08:30; Stop 07/19/17 at 21:00 ; Status DC Tranexamic Acid 1567.5 mg/Sodium Chloride 115.675 ml @ 200 mls/ hr ONCE IV Last administered on 07/19/17 09:46; Start 07/19/17 at 08:30; Stop 07/19/17 at 21:00; Status DC Ropivacaine 24.63 ml/Ketorolac Tromethamine 30 mg/Epinephrine HCl 0.5 mg/ Clonidine 80 mcg/ Sodium Chloride 100 ml @ 200 mls/hr ONCE P-ARTICULR Last administered on 07/19/17 09:51; Start 07/19/17 at 08:30; Stop 07/19/17 at 21:00 ; Status DC Tranexamic Acid 3000 mg/Sodium Chloride 130 ml @ 260 mls/hr ONCE P-ARTICULR Last administered on 07/19/17 09:51; Start 07/19/17 at 11:30; Stop 07/19/17 at 21:00; Status DC Dexamethasone Sodium Phosphate (Decadron Inj) 10 mg ONCE IV PUSH Last administered on 07/19/17 07:45; Start 07/19/17 at 08:30; Stop 07/19/17 at 21:00 ; Status DC Alprazolam (Xanax) 0.5 mg Q8H PRN PO ANXIETY; Start 07/19/17 at 07:00 Ascorbic Acid (Vitamin C) 1,000 mg DAILY PO Last administered on 07/21/17 08: 24; Start 07/19/17 at 12:00 Non-Formulary Medication 137 mcg DAILY PO ; Start 07/19/17 at 09:00; Status UNV Sodium Chloride 1,000 ml @ 100 mls/hr Q10H IV Last administered on 07/19/17 23:39; Start 07/19/17 at 10:15 Cefazolin Sodium/ Dextrose 50 ml @ 100 mls/hr Q6H IV Last administered on 07/20 03:23; Start 07/19/17 at 15:00; Stop 07/20/17 at 03:29; Status DC Miscellaneous Information (Post-op Orders (for Pharmacy)) STAT ONCE XX ; Start 07/19/17 at 07:00; Stop 07/19/17 at 10:11; Status DC Enoxaparin Sodium (Lovenox Inj) 40 mg Q24H SQ Last administered on 07/21/17 08 :24; Start 07/20/17 at 10:00; Stop 07/29/17 at 10:01 Morphine Sulfate (Morphine Inj) 3 mg Q3H PRN IV PUSH Pain >7 when 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; Start 07/19/17 at 07:00 Acetaminophen/ Hydrocodone Bitart ([place] 7.5-325 Mg) 1 tab Q4H PRN PO PAIN LESS THAN 5 ON SCALE Last administered on 07/21/17 03:40; Start 07/19/17 at 07: 00 Acetaminophen/ Hydrocodone Bitart ([place] 7.5-325 Mg) 2 tab Q4H PRN PO PAIN SCALE 5 TO 10 Last administered on 07/21/17 08:24; Start 07/19/17 at 07:00 Multivitamins/ Minerals Therapeutic (Theragran M Tab) 1 tab BID PO Last administered on 07/21/17 08:24; Start 07/20/17 at 21:00; Stop 09/18/17 at 20:59 Ondansetron HCl (Zofran Inj) 4 mg Q6H PRN IVP NAUSEA OR VOMITING Last administered on 07/20/17 05:28; Start 07/19/17 at 07:00 Docusate Sodium (Colace) 100 mg BID PO Last administered on 07/21/17 08:24; Start 07/20/17 at 21:00 Zolpidem Tartrate (Ambien) 5 mg HS PRN PO SLEEP; Start 07/19/17 at 21:00 Bisacodyl (Dulcolax Supp) 10 mg DAILY PRN RECTAL CONSTIPATION Last administered on 07/20/17 10:02; Start 07/19/17 at 07:00 Diphenhydramine HCl (Benadryl Inj) 25 mg Q6H PRN IV PUSH ITCHING; Start at 07:00 Gentamicin Sulfate (Gentamicin Inj) 240 mg STK-MED ONCE .ROUTE Last administered on 07/19/17 09:51; Start 07/19/17 at 06:58; Stop 07/19/17 at 06:59 ; Status DC Bupivacaine Liposome (Exparel Pf 1.3% Inj) 20 ml STK-MED ONCE .ROUTE ; Start at 07:39; Stop 07/19/17 at 07:40; Status DC Acetaminophen 0 ml @ As Directed STK-MED ONCE IV ; Start 07/19/17 at 07:40; Stop 07/19/17 at 07:41; Status DC Aprepitant (Emend) 40 mg STK-MED ONCE .ROUTE ; Start 07/19/17 at 07:57; Stop at 07:58; Status DC Midazolam HCl (Versed Inj) 5 mg STK-MED ONCE .ROUTE ; Start 07/19/17 at 09:50; Stop 07/19/17 at 09:51; Status DC Levothyroxine Sodium (Synthroid) 112 mcg DAILY@0600 PO ; Start 07/19/17 at 12:00 Levothyroxine Sodium (Synthroid) 25 mcg DAILY@0600 PO ; Start 07/19/17 at 12:00 Morphine Sulfate (*morphine INJ PERIprocedure ONLY) 8 mg STK-MED ONCE .ROUTE ; Start 07/19/17 at 12:11; Stop 07/19/17 at 12:12; Status DC Miscellaneous Information ALL NURSING DEPARTME... UNSCH PRN .XX SEE LABEL COMMENTS; Start 07/19/17 at 11:09; Stop 07/20/17 at 11:08; Status DC A/P Assessment and Plan - osteoarthritis- s/p left total knee arthroplasty continue pain control and rehab efforts- management per ortho. -hypothyroidism; resumed levothyroxine -DVT prophylaxis; on Lovenox- per ortho Discharge Planning dc planning per ortho. Karyn Montana MD Jul 21, 2017 12:34
--- NOTE | 2017-07-22 10:02 | MD ---
cc: JOAN JOY M.D. ADMISSION DATE: 07/19/2017 DISCHARGE DATE: 07/21/2017 ADMISSION DIAGNOSIS Severe degenerative osteoarthritis left knee DISCHARGE DIAGNOSIS Severe degenerative osteoarthritis left knee HISTORY OF PRESENT ILLNESS Ms. De Jesus is a 57-year-old female who has been a longstanding patient of Dr. Joan Joy at the [facility]. She has had a history of well-functioning bilateral total hip arthroplasty. Currently she is under treatment for severe and progressive left knee pain. She states the pain is a severe aching sensation aggravated by weightbearing activities and pain is currently limiting her ability to ambulate, as well as limiting her ability to perform daily activities of daily living. She states she has no alleviating factors, although in the past she has tried medications, bracing, physical therapy, home exercise program and even injections without long-lasting relief of symptoms. She does have x-ray evidence of severe degenerative osteoarthritis of the left knee. While in the office, the patient was counseled on her diagnosis and treatment options. The risks, benefits, and indications were all discussed. The patient did elect to proceed with surgical intervention to include a left total knee arthroplasty. Date of surgery 07/19/2017, left total knee arthroplasty. Postop after surgery, the patient admitted to [facility] where she received appropriate medical management, pain control, DVT prophylaxis, as well as physical therapy. Discharge, once being discharged from the hospital, the patient was cleared to go to a residential facility. She is in stable condition. She may weight-bear as tolerated. The patient is to receive daily dressing changes and has been instructed on appropriate wound care management. She has been provided prescriptions for pain control as well as DVT prophylaxis medication. She has also been provided a follow-up appointment in approximately two weeks from date of surgery. The patient has asked appropriate questions which have been answered. The patient has been discharged. Dictated by: TESSIE Pretty MD DANIA Oscar/JESSICA /8:09 AM /9:39 AM
== END 2017-07-21 15:44 | DRG 470 ==
LOC: HSDI 05:17 → N06A 12:45
PROVIDERS: ADMIT Orthopaedic Surgery Sports Medicine; ATTEND Orthopaedic Surgery Sports Medicine
PROC: 3E0T3BZ Introduction of Anesthetic Agent into Peripheral Nerves and Plexi, Percutaneous Approach (ICD-10-PCS; 2017-07-19)
PROC: 0SRD0J9 Replacement of Left Knee Joint with Synthetic Substitute, Cemented, Open Approach (ICD-10-PCS; principal; 2017-07-19 08:47)
DX: M17.12 Unilateral primary osteoarthritis, left knee (principal); E03.9 Hypothyroidism, unspecified; R11.0 Nausea; Z96.643 Presence of artificial hip joint, bilateral
CPT/HCPCS: 73560; 80048; 85027; 86850; 86900; 86901; C9290; J0131; J0690; J0735; J1100; J1580; J1650; J1885; J2250; J2270; J2405; J2795; J3370; J7030; J7050; J7120; J8501; L1830